=== PATIENT | female | born 1980 | race African-American/Black ===

== ENCOUNTER 2022-05-11 23:44 | Emergency (ER) | payer SELFPAY ==
[~2022-05-11] VITALS: Ht 157.4 cm; Wt 84.8 kg
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
[2022-05-12 00:48] VITALS: BP 172/122
== END 2022-05-12 00:45 | disposition home or self-care (01) ==
LOC: ER 23:46
DX: B34.9 Viral infection, unspecified (principal); I10 Essential (primary) hypertension; R51.9 Headache, unspecified; F17.210 Nicotine dependence, cigarettes, uncomplicated; Z20.822 Contact with and (suspected) exposure to COVID-19; Z28.310 Unvaccinated for COVID-19
CPT/HCPCS: 87430; 87636; 99283